=== PATIENT | male | born 1940 | race Caucasian/White ===

== ENCOUNTER 2022-04-25 12:27 | Outpatient (CLI) | payer MEDICARE ==
[2022-04-25 13:26] LABS: Hemoglobin 11.5 g/dL (13.5-17.5); Mean Corpuscular HGB CONC 33.2 g/dL (32.0-36.0); Mean Corpuscular Hemoglobin 29.5 pg (27.0-33.0); Mean Corpuscular Volume 88.7 fl (81.2-95.1); Mean Platelet Volume 10.4 fl (7.4-10.4); Platelet Count 323 10x3/uL (150-450); RBC Distribution Width 15.4 % (11.5-14.5); White Blood Cell (WBC) Count 9.5 10x3/uL (3.5-10.5)
[2022-04-25 13:37] LABS: INR-International Normal Ratio 0.9; PTT 23.4 sec (22.0-33.0); Prothrombin Time 10.3 sec (9.5-12.1)
[2022-04-25 13:42] LABS: Anion Gap 14 mmol/L (10-20); BUN (Urea Nitrogen) 16 mg/dL (8.4-25.7); Calc. Creatinine Clearance 0 mL/min (70-130); Calcium 9.5 mg/dL (7.8-10.44); Carbon Dioxide 27 mmol/L (23-31); Chloride 104 mmol/L (98-107); Glucose 93 mg/dL (83-110); Potassium 5.2 mmol/L (3.5-5.1); Sodium 140 mmol/L (136-145)
== END 2022-04-25 12:28 | disposition home or self-care (01) ==
LOC: CSHLAB 12:27
PROVIDERS: ATTEND Internal Medicine Cardiovascular Disease
DX: Z01.818 Encounter for other preprocedural examination (principal); Z20.822 Contact with and (suspected) exposure to COVID-19
CPT/HCPCS: 71046; 80048; 85027; 85610; 85730; 93005; 93010; U0003; U0005

== ENCOUNTER 2022-04-30 08:02 | Day surgery (SDC) | payer MEDICARE ==
[~2022-04-30 08:02] MED LIST: Iopamidol 300 61% 100 ML VIAL FS ONE
[2022-04-30] MEDS ORDERED: Aspirin Chewable 81 MG TAB ONE (08:55)
[2022-04-30] MEDS ORDERED: Nitroglycerin 50 MG/250 ML BOT 0 ML ONE (09:19)
[2022-04-30] MEDS ORDERED: Heparin 10,000 UNITS/ 10 ML VIAL ONE ×2 (09:20→12:31)
[2022-04-30] MEDS ORDERED: Adenosine 6 MG/2 ML VIAL ONE (09:20)
[2022-04-30] MEDS ORDERED: PHENYLEPHRINE-NS 100 MCG/ML 10 ML SYRINGE ONE (09:22)
[2022-04-30] MEDS ORDERED: Atropine Sulfate 0.4 mg/1 ml Vial ONE (09:22)
[2022-04-30] MEDS ORDERED: Midazolam HCl 2 mg/2 ml Vial ONE (09:23)
[2022-04-30] MEDS ORDERED: Fentanyl 100 MCG/2 ML VIAL ONE (09:23)
[2022-04-30] MEDS ORDERED: Phenylephrine 40 MG/NS 250 ML 0 ML ONE (09:26)
[2022-04-30] MEDS ORDERED: Lidocaine 1% 20 ML MDV ONE (09:59)
[2022-04-30 10:10] VITALS: BP 176/77; TEMP 97.6
[2022-04-30] MEDS ORDERED: Protamine Sulfate 50 MG/5 ML VIAL ONE (13:12)
[2022-04-30] MEDS ORDERED: hydrALAZINE 20 MG/ML VIAL ONE (13:12)
[2022-04-30] MEDS ORDERED: Carvedilol 25 MG TAB PO SCH (15:15)
== END 2022-04-30 15:28 | disposition home or self-care (01) ==
LOC: CSHCCL 08:02
PROVIDERS: ATTEND Internal Medicine Cardiovascular Disease
PROC: B315ZZZ Fluoroscopy of Bilateral Common Carotid Arteries (ICD-10-PCS; principal; 2022-04-30)
DX: I65.23 Occlusion and stenosis of bilateral carotid arteries (principal); I70.8 Atherosclerosis of other arteries; I12.9 Hypertensive chronic kidney disease with stage 1 through stage 4 chronic kidney disease, or unspecified chronic kidney disease; N18.9 Chronic kidney disease, unspecified; I25.10 Atherosclerotic heart disease of native coronary artery without angina pectoris; E78.5 Hyperlipidemia, unspecified; Z87.891 Personal history of nicotine dependence; Z79.890 Hormone replacement therapy; Z79.899 Other long term (current) drug therapy; Z88.6 Allergy status to analgesic agent; Z88.8 Allergy status to other drugs, medicaments and biological substances; Z95.5 Presence of coronary angioplasty implant and graft; Z95.820 Peripheral vascular angioplasty status with implants and grafts
CPT/HCPCS: 36223; 36227; 71046; 80048; 85027; 85347; 85610; 85730; 93005; 93010; 99152; 99153; C1760; C1769; C1887; C1894; J0153; J0360; J0461; J1644; J2250; J2720; J3010; Q9967; U0003; U0005

== ENCOUNTER 2022-04-30 17:02 | Inpatient (IN) | payer MEDICARE ==
[2022-04-30 18:01] LABS: #Basophils 0.1 10x3/uL (0.0-0.2); #Eosinphils 0.2 10x3/uL (0.0-0.5); #Monocytes 0.6 10x3/uL (0.0-1.1); #Neutrophils 6.5 10x3/uL (1.5-8.4); %Basophils 0.6 % (0.0-2.0); %Lymphocytes 30.5 % (18.0-47.0); %Monocytes 5.4 % (0.0-10.0); %Neutrophils 60.8 % (40.0-75.0); Hemoglobin 10.5 g/dL (13.5-17.5); Mean Corpuscular HGB CONC 33.7 g/dL (32.0-36.0); Mean Corpuscular Hemoglobin 29.8 pg (27.0-33.0); Mean Corpuscular Volume 88.6 fl (81.2-95.1); Mean Platelet Volume 10.8 fl (7.4-10.4); Platelet Count 289 10x3/uL (150-450); RBC Distribution Width 15.5 % (11.5-14.5); Red Blood Cell (RBC) Count 3.52 10x6/uL (4.32-5.72); White Blood Cell (WBC) Count 10.7 10x3/uL (3.5-10.5)
[2022-04-30 18:10] LABS: PTT 26.7 sec (22.0-33.0); Prothrombin Time 10.9 sec (9.5-12.1)
[2022-04-30 18:12] LABS: ALT (SGPT) 20 U/L (8-55); AST (SGOT) 21 U/L (5-34); Albumin 3.6 g/dL (3.4-4.8); Alkaline Phosphatase 124 U/L (40-110); Anion Gap 15 mmol/L (10-20); BUN (Urea Nitrogen) 22 mg/dL (8.4-25.7); Bilirubin, Total 0.7 mg/dL (0.2-1.2); Calc. Creatinine Clearance 0 mL/min (70-130); Carbon Dioxide 26 mmol/L (23-31); Chloride 101 mmol/L (98-107); Globulin 2.2 g/dL (2.4-3.5); Glucose 200 mg/dL (83-110); Potassium 3.5 mmol/L (3.5-5.1); Protein, Total 5.8 g/dL (5.8-8.1); Sodium 138 mmol/L (136-145)
[2022-04-30] MEDS ORDERED: Aspirin 325 MG TAB ONE (21:55)
[2022-04-30] MEDS ORDERED: Aspirin Chewable 81 MG TAB ONE (21:56)
[2022-04-30 23:08] VITALS: BMI 22.6
[2022-05-01 05:02] LABS: Cardiac Risk 4.3 (Less than 4.5)
[2022-05-01] MEDS: Levothyroxine Sodium 125 MCG TAB PO SCH (05:50)
[2022-05-01] MEDS ORDERED: Carvedilol 12.5 MG TAB PO SCH (08:00)
[2022-05-01] MEDS: Tamsulosin HCl 0.4 MG CAP PO SCH (08:59)
[2022-05-01] MEDS: Atorvastatin Calcium 40 MG TAB PO SCH (08:59)
[2022-05-01] MEDS: Aspirin 81 mg Enteric Coated Tablet PO SCH (08:59)
[2022-05-01] MEDS: Clopidogrel Bisulfate 75 MG TAB PO SCH (08:59)
[2022-05-01] MEDS ORDERED: Atorvastatin Calcium 40 MG TAB PO SCH (21:00)
[2022-05-01] MEDS ORDERED: Carvedilol 3.125 MG TAB PO SCH (21:00)
[2022-05-02] MEDS ORDERED: hydrALAZINE 20 MG/ML VIAL SLOW IVP SCH (06:00)
[2022-05-02] MEDS: Levothyroxine Sodium 125 MCG TAB PO SCH (06:21)
[2022-05-02] MEDS ORDERED: Minoxidil 10 MG TAB PO SCH (09:00)
[2022-05-02] MEDS ORDERED: Minoxidil 2.5 MG TAB PO SCH (09:00)
[2022-05-02] MEDS ORDERED: Triamterene/Hydrochlorothiazide TAB PO SCH (09:00)
[2022-05-02] MEDS ORDERED: Carvedilol 3.125 MG TAB PO SCH (09:00)
[2022-05-02] MEDS: Aspirin 81 mg Enteric Coated Tablet PO SCH (09:20)
[2022-05-02] MEDS: Tamsulosin HCl 0.4 MG CAP PO SCH (09:20)
[2022-05-02] MEDS: Atorvastatin Calcium 40 MG TAB PO SCH (09:20)
[2022-05-02] MEDS: Clopidogrel Bisulfate 75 MG TAB PO SCH (09:20)
[2022-05-02 15:52] VITALS: BP 125/66; TEMP 99.6
== END 2022-05-02 16:00 | disposition home or self-care (01) | DRG 91 ==
LOC: CSHERS 17:02 → CSHTELE 22:23
PROVIDERS: ADMIT Internal Medicine; ATTEND Family Medicine
DX: I97.821 Postprocedural cerebrovascular infarction following other surgery (principal); I63.511 Cerebral infarction due to unspecified occlusion or stenosis of right middle cerebral artery; E78.5 Hyperlipidemia, unspecified; I25.10 Atherosclerotic heart disease of native coronary artery without angina pectoris; R00.1 Bradycardia, unspecified; I65.23 Occlusion and stenosis of bilateral carotid arteries; E03.9 Hypothyroidism, unspecified; I12.9 Hypertensive chronic kidney disease with stage 1 through stage 4 chronic kidney disease, or unspecified chronic kidney disease; N18.30 Chronic kidney disease, stage 3 unspecified; Z20.822 Contact with and (suspected) exposure to COVID-19; Y83.8 Other surgical procedures as the cause of abnormal reaction of the patient, or of later complication, without mention of misadventure at the time of the procedure; N40.0 Benign prostatic hyperplasia without lower urinary tract symptoms; Z79.890 Hormone replacement therapy; Z79.02 Long term (current) use of antithrombotics/antiplatelets; Z79.899 Other long term (current) drug therapy; Z88.8 Allergy status to other drugs, medicaments and biological substances; Z95.5 Presence of coronary angioplasty implant and graft; Z98.890 Other specified postprocedural states; Z79.82 Long term (current) use of aspirin; Z82.49 Family history of ischemic heart disease and other diseases of the circulatory system; I70.8 Atherosclerosis of other arteries; Z87.891 Personal history of nicotine dependence; Z88.6 Allergy status to analgesic agent; Z95.820 Peripheral vascular angioplasty status with implants and grafts
CPT/HCPCS: 36223; 36227; 36415; 70544; 70549; 70551; 80053; 80061; 84484; 85025; 85347; 85610; 85730; 93005; 93306; 94760; 99152; 99153; C1760; C1769; C1887; C1894; J0153; J0360; J0461; J1644; J2250; J2720; J3010; Q9967; U0003; U0005